=== PATIENT | female | born 1975 | race Asian ===

== ENCOUNTER 2020-11-22 13:05 | Emergency (ER) | payer MEDICAID ==
[~2020-11-22] VITALS: Ht 152.4 cm; Wt 68.0 kg
[2020-11-22 14:17] VITALS: BP 135/78
--- NOTE | 2020-11-22 14:19 | NUR ---
ED Nurse Note: Pt walked into the ed due to edema on the left lower leg.
--- NOTE | 2020-11-22 14:20 | Emergency Room Report ---
History of Present Illness General Chief Complaint: Edema Source: Patient Present Illness HPI Disclaimer: Please note that this report is being documented using [employer] technology. This can lead to erroneous entry secondary to incorrect interpretation by the dictating instrument. HPI: 45-year-old female presents for DVT rule out. Patient states she has had swelling of the left lower extremity for several days. Denies pain. Denies redness. Denies warmth. Denies limitation in range of motion, numbness or tingling, loss of sensation. Denies injury or recent strain. Did an online telemedicine consult and physician advised her to present to ER for ultrasound. Patient states she had some swelling in the right leg a few days ago but this had gone down. Ambulating without difficulty. Denies long-distance travel. Does not take exogenous hormones. No prior clotting. No surgery or immobilization. PMH: Reviewed PSH: Reviewed Allergies: Reviewed Social Hx: Reviewed Allergies: Coded Allergies: No Known Allergies (Unverified , 11/22/20) COVID-19 Screening Contact w/high risk pt: No Experienced COVID-19 symptoms?: No COVID-19 Testing performed PSYCHOLOGY TECH: No Patient History Now: No Review of Systems All Other Systems: negative except mentioned in HPI Physical Exam Vital Signs Date Time Temp Pulse Resp B/P (MAP) Pulse Ox O2 Delivery O2 Flow Rate FiO2 11/22/20 14:11 97.5 69 16 135/78 (97) 97 Room Air General: Awake and alert, no acute distress HEENT: NC/AT. EOMI. Cardiovascular: RRR. S1 and S2 normal. No murmur appreciated Resp: Normal work of breathing. No cough, wheezing or crackles appreciated Abdomen: Abdomen is soft, nondistended. Nontender Skin: Intact. No abrasions, laceration or rash over the exposed skin MSK: Normal tone and bulk. Moving all extremities. No obvious deformity. No obvious swelling of the lower extremities. They appear symmetrical.. No tenderness. No edema or erythema. Neuro: Awake and alert. Mentating appropriately. Medical Decision Making Diagnostic Impression: Primary Impression: Edema ER Course 45-year-old female presents complaining of lower extremity edema. Instructed to present to ED for DVT rule out by telemedicine provider. Ultrasound unremarkable; no DVT. I see no significant asymmetry between her lower extremities. Overall she is well-appearing and stable for outpatient follow-up. Discussed compression stockings and keeping her legs elevated while at rest. She will follow up with her PMD for further care. Last Vital Signs Date Time Temp Pulse Resp B/P (MAP) Pulse Ox O2 Delivery O2 Flow Rate FiO2 11/22/20 14:11 97.5 69 16 135/78 (97) 97 Room Air Disposition: HOME, SELF-CARE Condition: Stable Marlon Leonard MD Nov 22, 2020 14:20
--- NOTE | 2020-11-22 14:45 | NUR ---
ultrasound completed negative for dvt
--- NOTE | 2020-11-22 14:57 | NUR ---
discharged home with instructionbto follow up with pmd
[2020-11-22 14:58] VITALS: BP 135/78
--- NOTE | 2020-11-22 15:00 | Diagnostic Imaging Report ---
Indication: Left Leg pain and swelling Technique: Grayscale and duplex Doppler imaging of the veins in left lower extremity performed in real time utilizing compression and augmentation. Comparison: None Findings: Duplex Doppler interrogation of the veins in left lower extremity is performed from the common femoral vein to the popliteal vein. Normal venous compressibility demonstrated throughout. No thrombus identified. Waveform analysis shows good respiratory phasicity and augmentation. Comparison of the right common femoral vein demonstrates a patent compressible right common femoral vein. Imaged left calf veins appear patent. IMPRESSION: No evidence of deep venous thrombosis involving the left lower extremity.
== END 2020-11-22 14:58 | disposition home or self-care (01) ==
LOC: EMR 14:45
DX: R60.0 Localized edema (principal)
CPT/HCPCS: 93971; Z7502; 99284